=== PATIENT | male | born 1960 | race Caucasian/White ===

== ENCOUNTER 2017-11-07 13:42 | Inpatient (IN) ==
[~2017-11-07 13:42] MED LIST: *HR* Atropine Sulfate 1 MG/10 ML SYRINGE IV ONE; *HR* EPINEPHrine 1 MG/10 ML SYRINGE INTRATRACH ONE
[2017-11-07] MEDS ORDERED: *HR* Ticagrelor 90 MG TABLET PO ONE (13:44)
[2017-11-07] MEDS ORDERED: Ondansetron 4 MG/2 ML VIAL IVP ONE (13:44)
[2017-11-07] MEDS ORDERED: *HR* Heparin 5,000 UNIT/ML VIAL IVP ONE (13:46)
[2017-11-07] MEDS ORDERED: *HR* FentaNYL (PF) 250 MCG/5 ML VIAL ONE (13:50)
[2017-11-07] MEDS ORDERED: *HR* Midazolam HCl 5 MG/5 ML VIAL IVP ONE (13:50)
--- NOTE | 2017-11-07 13:54 | Emergency Department Note ---
Disposition Clinical Impression: STEMI (ST elevation myocardial infarction) Qualifiers: Involved coronary artery: unspecified coronary artery Qualified Code(s): I21.3 - ST elevation (STEMI) myocardial infarction of unspecified site Chest pain Qualifiers: Chest pain type: unspecified Qualified Code(s): R07.9 - Chest pain, unspecified Nausea & vomiting Qualifiers: Vomiting type: unspecified Vomiting Intractability: non-intractable Qualified Code(s): R11.2 - Nausea with vomiting, unspecified Disposition: Admitted As Inpatient General Adult HPI - General Chief complaint: ED Chest Pain Stated complaint: Stemi Time Seen by Provider: 11/07/17 13:44 Source: patient, EMS Limitations: no limitations Nursing Notes Reviewed: Yes Vital Signs Reviewed: Yes - History of Present Illness HPI Narrative: 56 y/o male who 2 hours ago was shoveling snow and developed substernal CP. No history of any medical problems. Takes no medications. EMS was called and they transmitted an EKG w/ an inferior STEMI. No fall or injury. No headache. CP resolved as they were pulling up to the ER. He received aspirin and nitro. He has nausea currently, but is otherwise CP free. Location: chest Radiation: non-radiation Pain Scale: 0 Improves with: nothing Worsens with: nothing Associated symptoms: Reports: denies other symptoms Treatments Prior to Arrival: none - Related Data Allergies Allergy/AdvReac Type Severity Reaction Status Date / Time No Known Allergies Allergy Verified 11/07/17 13:43 All systems ED: reviewed and negative except as stated. Constitutional: Denies: fever Cardiovascular: Reports: chest pain Respiratory: Denies: dyspnea Gastrointestinal: Denies: abdominal pain Musculoskeletal: Denies: back pain Integumentary: Denies: rash Neurological: Denies: headache Endocrine: Reports: fatigue Physical Exam - General Limitations: no limitations General appearance: alert, in no apparent distress - Head Head exam: atraumatic - Eye Eye exam: Present: normal appearance, PERRL - ENT ENT exam: normal exam, normal oropharynx - Neck Neck exam: Present: normal inspection - Chest Chest inspection: Present: normal inspection - Respiratory Respiratory exam: Present: normal lung sounds bilaterally. Absent: respiratory distress - Cardiovascular Cardiovascular exam: Present: regular rate, normal rhythm - Abdominal Exam Abdominal exam: Present: soft, Non-Tender - Extremities Exam Extremities exam: Present: normal inspection - Neurological Exam Neurological exam: Present: alert, oriented X3 - Skin Skin exam: Present: warm, dry Course Course Narrative: STEMI alert called when EKG transmitted. EMS transport approximately [address] Bender saw the patient in the ED. The patient left to the manager cath lab 12 minutes after he arrived to the ER. Medical Decision Making - Medical Records Medical records reviewed: Yes I reviewed the patient's medical records. - Lab Data Result diagrams: 11/07/17 13:45 - EKG Data EKG #1 EKG attestation: Yes I reviewed and interpreted this EKG. EKG shows normal: sinus rhythm Rate: normal Rhythm: NSR [place]/QRS: normal ST segment elevation in: II, III, aVF ST segment depression in: v2, v3, v4 When compared to previous EKG there are: changes noted Interpretation: other (Acute STEMI (inferior)) Attestation Statement - Attestation Attestation: I examined this patient and my medical decision-making was reviewed with the Resident Physician. I agree with the documented findings, disposition and treatment plan as described except to the extent set forth below. Patient presents to the ED with a chief complaint chest pain. Patient is describing substernal pressure that started an hour prior to his arrival while he was shoveling snow. On examination he is in no distress. Pale. Diaphoretic. Lungs clear. Plan. Patient has inferior ST elevations with anterior depressions. Stimulant was called in the field when EKG was transmitted. He was given aspirin by medics. Nitroglycerin 1. Patient was febrile into and heparin and Zofran in ED. Patient to catheter lab. Critical care less than 30 minutes.
[2017-11-07 14:00] LABS: Basophils # 0.1 K/mcL (0.0-0.2); Basophils % 0.5 %; Eosinophils # 0.1 K/mcL (0.0-0.6); Eosinophils % 0.9 %; Hematocrit 43.1 % (37.5-50.1); Hemoglobin 14.7 g/dL (12.9-16.9); Immature Granulocytes % 0.4 % (0-4); Lymphocytes # 4.3 K/mcL (0.6-4.6); Lymphocytes % 30.1 %; Mean Corpuscular HGB Conc 34.1 g/dL (31.6-35.5); Mean Corpuscular Hemoglobin 32.4 pg (28.0-33.3); Mean Corpuscular Volume 94.9 fL (83.0-100.0); Mean Platelet Volume 8.8 fL (9.4-12.4); Monocytes # 0.9 K/mcL (0.0-1.3); Monocytes % 6.3 %; Neutrophils # 8.8 K/mcL (1.6-8.9); Platelet Count 315 K/mcL (140-400); Red Blood Count 4.54 M/mcL (4.19-5.50); Segmented Neutrophils % 61.8 %
[2017-11-07 14:05] LABS: Prothrombin Time 10.7 Seconds (9.4-12.1)
[2017-11-07 14:08] LABS: Activated Partial Thrombo Time 28.6 Seconds (26.0-36.0)
[2017-11-07] MEDS ORDERED: Tirofiban 12.5 MG/250ML 12.5 MG/250 ML BAG ONE (14:08)
[2017-11-07 14:13] LABS: BUN/Creatinine Ratio 15 (6-26); Blood Urea Nitrogen 13 mg/dL (6-20); Calcium 8.9 mg/dL (8.6-10.3); Carbon Dioxide 21 mEq/L (23-29); Chloride 107 mEq/L (98-107); Glucose 130 mg/dL (70-105); Magnesium 1.9 mg/dL (1.6-2.6); Osmolality,Calculated 284 (280-300); Potassium 3.4 mEq/L (3.5-5.1); Sodium 136 mEq/L (136-145); eGFR For African Americans > 60 (> 60); eGFR For Non-African Americans > 60 (> 60)
[2017-11-07] MEDS ORDERED: 0.9 % Sodium Chloride 1,000 ML ONE ×2 (14:24→15:08)
[2017-11-07] MEDS ORDERED: DOPamine Premix 0 MG/0 ML BAG ONE (14:25)
[2017-11-07] MEDS ORDERED: Heparin 1,000 UNITS/500 mL 500 ML ONE (15:09)
[2017-11-07] MEDS ORDERED: *HR* Heparin 10,000 UNIT/10 ML VIAL ONE (15:09)
--- NOTE | 2017-11-07 15:23 | Cardiology History & Physical ---
Date of Encounter: 11/07/17 Time of Encounter: 15:21 Assessment and Plan (1) STEMI (ST elevation myocardial infarction) Current Visit: Yes Status: Acute The assessment and plan as outlined above was discussed with the patient and/or family members who expressed understanding and agreement. All questions were answered. Inferior STEMI , started on Brilinta asa and heparin in the ED. Currently chest pain free, will stage OM1 thursday. Continue asa 81 mg along with brilinta 90mg bid Qualifiers: Involved coronary artery: right coronary artery Qualified Code(s): I21.11 - ST elevation (STEMI) myocardial infarction involving right coronary artery History of Present Illness Chief complaint: Chest Pain HPI: Mr. Foster is a 56 year old male presents with chest pain while shoveling snow at his driveway. Chest pain was RS sharp non radiating found to have inferior ST elevations. Posterior ischemia was also noted. Currently s/p PCI of the Mid RCA with distal moderate RCA disease. Large distribution OM to be staged for PCI on thursday. LVEF 60% with mild basal inferior wall HK Past Med Surg Social Fam HX - Past Medical History Medical history: no medical history Psychiatric history: no psych history - Social History Smoking Status: Current every day smoker Smokeless Tobacco Status: No Alcohol use: none Drug use: none Medications and Allergies 3 Allergy/AdvReac Type Severity Reaction Status Date / Time No Known Allergies Allergy Verified 11/07/17 13:43 All Systems Review: A 10-system review of systems was performed and is negative for pertinent findings except as documented above in the HPI. Physical Examination General: Conversant, No Apparent Distress HEENT: Atraumatic, Normocephaly, Mucus Membranes Moist Neck: No JVD, Normal carotid pulses Cardiac: Reg Rate and Rhythm, Normal S1 and S2, No Murmur Lungs: Normal Breath Sounds, No Wheeze, Rales, Rhonchi Neuro: Alert and responsive, No focal deficits noted Abdomen: Soft, Non-Tender Skin: No rashes noted on visualized skin Musculoskeletal: No Chest Wall Tenderness Extremities: No Clubbing, No Cyanosis, No Edema, Normal Pulses Results 11/07/17 13:45 11/07/17 13:45
[2017-11-07] MEDS ORDERED: Ondansetron 4 MG/2 ML VIAL IVP PRN (15:28)
--- NOTE | 2017-11-07 15:30 | Invasive Diagnostic Lab Proc ---
Name: Georgina Foster Date of Study: 11/07/2017 Date: 1960 Ht: 69.0in Medical Record#: [id number] Age: 56 Wt: 183.00lb Gender: Male BSA: 1.99 Order #: [id number] BMI: 27.02 Physicians Procedure Physician: Nelda Bender MD Referring MD: Referring MD: Staff Name Position Time In Chang Carlos RN Mold Changer 02:05 PM Trinity Teran RN Monitor 02:05 PM Adele Bryan RN Scrub 02:05 PM Indications Indication STEMI Procedures Performed Procedure L HRT ARTERY/VENTRICLE ANGIO PRQ CARD REVASC WA 1 VSL Pre-Procedure Checklist Informed consent is complete signed and on chart. H&P is on chart. ID band is on and ID verified with patient. Pt not NPO for procedure and MD aware. The procedure was described for the patient and questions were answered. Blood Pressure: 134/80 ECG is on chart. Rhythm: St elevation, normal rate Plan of Care Patient will tolerate the procedure without complications. Adequate level of comfort will be maintained. Hemodynamics will remain stable Patient will recover from procedure without complications. Respiratory function will be maintained. Cardiac rhythm will remain stable. Patient temperature will be maintained. Patient and/or family have verbalized understanding of the procedure. Patient Education Chief Complaint/Reason for Test: Cardiac Cath Developmental Category: Adult (18-64 years) Developmentally Appropriate for Age: Yes Learning Barriers: None Education Needs: Procedure Education Method: Verbal Information Taught: Cardiac Cath Educational Evaluation: Able to repeat information Intravenous Access Time IV Size Location DC'd Fluid/Drip Rate Units RN 02:02 PM 18g 1 14" Patent On Arrival Lt Antecubital 0.9NaCl 25 ml/hr Chang Carlos RN 02:02 PM 18g 1 1/4" Patent On Arrival Rt Antecubital Allergies No Known Allergies Vital Signs Time BP (mmHg) HR (bpm) O2 Sat. RR (bpm) LOC 02:03 PM / % 5 = Fully awake and oriented or at pre-proc level 02:03 PM / % 4 = Oriented but drowsy 02:19 PM / % 4 = Oriented but drowsy 02:34 PM / % 4 = Oriented but drowsy 02:49 PM / % 4 = Oriented but drowsy 02:00 PM 134 / 84 66 97 % 02:05 PM 125 / 87 80 96 % 11 02:10 PM 136 / 82 67 92 % 14 02:12 PM 93 / 74 67 91 % 15 02:18 PM 159 / 91 105 91 % 15 02:22 PM 95 / 62 94 90 % 18 02:23 PM 74 / 32 67 91 % 16 02:24 PM 63 / 44 92 100 % 16 02:25 PM 99 / 64 99 93 % 16 02:33 PM 95 / 60 93 92 % 18 02:41 PM 102 / 70 89 91 % 18 Procedural Medications Time Medication Dose Units Method Given By 02:02 PM Oxygen 2 L/min nasal cannula Chang Carlos RN 02:04 PM Versed 1 mg Intravenous Chang Carlos RN 02:04 PM Fentanyl 50 mcg Intravenous Chang Carlos RN 02:05 PM Lidocaine 2% 10 ml Subcutaneous Nelda Bender MD 02:10 PM Heparin 1000 units Intravenous Chang Carlos RN 02:10 PM Aggrastat Bolus: 42 ml Intravenous Chang Carlos RN 02:11 PM Aggrastat 12.5mg/250ml 15 ml Intravenous Chang Carlos RN 02:13 PM Atropine 0.5 amp Intravenous Chang Carlos RN 02:14 PM Epinephrine 100 mcg Intravenous Chang Carlos RN 02:23 PM Atropine 0.5 amp Intravenous Chang Carlos RN 02:35 PM Heparin 500 units Intravenous Chang Carlos RN 02:41 PM Nitroglycerin 100 mcg Intracoronary Lamin Bender MD 02:30 PM Nitroglycerin 100 mcg Intracoronary Lamin Bender MD ASA Classification: CLASS II- Mild systemic disease (i.e. well-controlled diabetes, hypertension, asthma, cigarette smoking) Emergent Procedure: ASA score is assumed Jocelyne Score Preprocedure Postprocedure Activity 2- Moves 4 extremities sustained head lift Activity 2- Moves 4 extremities sustained head lift Circulation 2- SBP +/= 20 points of pre-anesthetic level Circulation 2- SBP +/= 20 points of pre-anesthetic level Consciousness 2- Awake and alert oriented x 3 Consciousness 2- Awake and alert oriented x 3 O2 Saturation 2- Able to maintain O2 satruation of 92% on room air O2 Saturation 2- Able to maintain O2 satruation of 92% on room air Respiratory 2- Able to deep breathe and cough well Respiratory 2- Able to deep breathe and cough well Total Score 10 Total Score 10 Contrast Agent: Isovue Diagnostic Contrast: 226 ml Total Contrast: 226 ml Fluoro Dose: 1822 mGy Activated Clotting Time Time Seconds to Clot 02:09 PM 192 02:35 PM 208 03:10 PM 190 Procedure Log Time Note Enter By 01:56 PM Pt arrived to labor crew supervisor 2 at 13:56 scoates 01:59 PM CathStat 01:59 PM Case Start 02:00 PM Vitals capture started with the following parameters, Patient=Adult, Interval=5 min, Initial Baxxyeys=500 mmHg, Deflation Rate=5 mmHg, Cuff placed on Left Arm 02:00 PM HR=66 bpm, ULCM=023/84 mmhg, SpO2=97 % 02:02 PM Patient charges- Angio tray pack, Navilyst 3mm J, Pulse Oximetry and ACIST tubing and transducer scoates 02:02 PM Physician arrived 14:02 scoates 02:02 PM Meet and greet completed scoates 02:02 PM Sign in performed according to hospital policy. scoates 02:02 PM Procedure start 14:02 scoates 02:02 PM Time: 14:02 Oxygen on at 2 L/min per nasal cannula by Chang Carlos RN scoates 02:03 PM Hair removed from procedure site in emergency department using clippers. Bilateral groin prepped with Chloraprep by Chang Carlos RN, safety strap applied then patient was draped. Skin intact. scoates 02:03 PM Time: 14:03LOC: 5 = Fully awake and oriented or at pre-proc level scoates 02:03 PM Time: 14:03 Patient comfortable and pain free: No scoates 02:03 PM Complaint: Pain; Pain Score: 3 (1-10); Pain Location: Chest; Relief Measure: Medication; Response: . scoates 02:04 PM Clinical Presentation: STEMI or equivalent scoates 02:04 PM Time out performed according to hospital policy scoates 02:04 PM Time: 14:04 Versed 1 mg Intravenous Given by Chang Carlos RN scoates 02:04 PM Time: 14:04 Fentanyl 50 mcg Intravenous Given by Chang Carlos RN scoates 02:05 PM Time: 14:05 10 ml Lidocaine 2% to right groin Subcutaneous Given by Nelda Bender MD scoates 02:05 PM Chang Carlos RN Position: Mold Changer Time in: 14:05 scoates 02:05 PM [place], Trinity RN Position: Monitor Time in: 14:05 scoates 02:05 PM Adele Bryan RN Position: Scrub Time in: 14:05 scoates 02:05 PM Case Delayed No scoates 02:05 PM HR=80 bpm, TZZV=125/87 mmhg, SpO2=96.0 %, Resp=11 B/min 02:05 PM Pressure channel 1 zeroed. 02:06 PM Access obtained by percutaneous puncture. 6Fr 10cm Terumo [place] sheath placed in right Femoral artery. [id number] scoates 02:06 PM PCI Status Emergency scoates 02:07 PM 6Fr JR4 Runway guide catheter was used to cannulate the PCI vessel successfully. reused? No scoates 02:07 PM Recorded Pressure: Ao, HR=74, Condition=Condition 1 (Aorta) Ao 141/91/114 02:07 PM ACT drawn scoates 02:07 PM RCA angiography performed in multiple views. scoates 02:08 PM Coronary Dominance: right scoates 02:08 PM Lesion found in Mid RCA. Pre Stenosis: 100 Pre PABLO Flow: 0: No Flow/No perfusion scoates 02:09 PM .014 [place]ielder 180cm guide wire across target lesion- successful. reused? No scoates 02:09 PM At 14:09 the ACT was 192 seconds. scoates 02:10 PM Time: 14:10 Heparin 1000 units Intravenous Given by Chang Carlos RN scoates 02:10 PM HR=67 bpm, TLBZ=780/82 mmhg, SpO2=92.0 %, Resp=14 B/min 02:10 PM Time: 14:10 Aggrastat Bolus: 42 ml Intravenous Given by Chang Carlos RN Landry pump scoates 02:11 PM Time: 14:11 Aggrastat 12.5mg/250ml 15 ml Intravenous Given by Chang Carlos RN Landry pump scoates 02:11 PM 2.0 mm x 12 mm Emerge Monorail balloon across target lesion- successful. reused? No scoates 02:12 PM NIBP STAT measurement started. 02:12 PM Balloon inflated @ 6 ludin for 11 seconds scoates 02:12 PM HR=67 bpm, NIBP=93/74 mmhg, SpO2=91 %, Resp=15 B/min 02:13 PM pt became bradycardic, hr in the 20s scoates 02:13 PM Time: 14:13 Atropine 0.5 amp Intravenous Given by Chang Carlos RN scoates 02:14 PM Time: 14:14 Epinephrine 100 mcg Intravenous Given by Chang Carlos RN scoates 02:14 PM Pressure channel 1 zeroed. 02:16 PM Vitals capture stopped. 02:16 PM NIBP STAT measurement started. 02:17 PM Vitals capture stopped. 02:17 PM Recorded Pressure: Ao, GA=466, Condition=Condition 1 (Aorta) Ao 164/105/133 02:18 PM NIBP STAT measurement started. 02:18 PM FD=924 bpm, MQXX=274/91 mmhg, SpO2=91 %, Resp=15 B/min 02:18 PM Time: 14:03 Patient comfortable and pain free: No scoates 02:19 PM Time: 14:03LOC: 4 = Oriented but drowsy scoates 02:19 PM Complaint: Pain; Pain Score: 3 (1-10); Pain Location: Chest; Relief Measure: MD Aware no orders given; Response: . scoates 02:19 PM pt having chest pain and headache from medications given. physician aware scoates 02:20 PM Recorded Pressure: Ao, HR=98, Condition=Condition 1 (Aorta) Ao 107/76/91 02:22 PM NIBP STAT measurement started. 02:22 PM Balloon catheter removed intact. scoates 02:22 PM HR=94 bpm, NIBP=95/62 mmhg, SpO2=90 %, Resp=18 B/min 02:22 PM NIBP STAT measurement started. 02:22 PM 3.0mm x 20mm Synergy drug-eluting stent across target lesion- successful Lot #[id number] scoates 02:23 PM rhythm changed again to bradycardia, rate in the low 30s scoates 02:23 PM Stent deployed @ 11 ludin for 9 seconds scoates 02:23 PM Time: 14:23 Atropine 0.5 amp Intravenous Given by Chang Carlos RN scoates 02:23 PM HR=67 bpm, NIBP=74/32 mmhg, SpO2=91 %, Resp=16 B/min 02:23 PM NIBP STAT measurement started. 02:24 PM HR=92 bpm, NIBP=63/44 mmhg, PkX7=972 %, Resp=16 B/min 02:24 PM Recorded Pressure: Ao, RY=337, Condition=Condition 1 (Aorta) Ao 73/56/64 02:24 PM NIBP STAT measurement started. 02:25 PM HR=99 bpm, NIBP=99/64 mmhg, SpO2=93.0 %, Resp=16 B/min 02:26 PM Stent delivery system removed intact. scoates 02:26 PM 3.0mm x 20mm Synergy drug-eluting stent across target lesion- successful Lot #[id number] scoates 02:27 PM Lesion found in Proximal RCA. Pre Stenosis: 40 Pre PABLO Flow: scoates 02:29 PM stent removed intact, not deployed scoates 02:30 PM Time: 14:30 Nitroglycerin 100 mcg Intracoronary Given by Lamin Bender MD scoates 02:31 PM Time: 14:19 Patient comfortable and pain free: Yes scoates 02:33 PM NIBP STAT measurement started. 02:33 PM HR=93 bpm, NIBP=95/60 mmhg, SpO2=92.0 %, Resp=18 B/min 02:34 PM Time: 14:19LOC: 4 = Oriented but drowsy scoates 02:35 PM At 14:35 the ACT was 208 seconds. scoates 02:35 PM Time: 14:35 Heparin 500 units Intravenous Given by Chang Carlos RN scoates 02:35 PM 3.5 mm x 12mm NC Emerge balloon across target lesion- successful. reused? No scoates 02:38 PM Balloon inflated @ 12 ludin for 15 seconds scoates 02:38 PM Balloon inflated @ 12 ludin for 11 seconds scoates 02:39 PM Balloon inflated @ 14 ludin for 16 seconds scoates 02:39 PM Balloon inflated @ 12 ludin for 15 seconds scoates 02:40 PM NIBP STAT measurement started. 02:41 PM HR=89 bpm, UWPS=698/70 mmhg, SpO2=91.0 %, Resp=18 B/min 02:42 PM Time: 14:41 Nitroglycerin 100 mcg Intracoronary Given by Lamin Bender MD scoates 02:45 PM Balloon catheter removed intact. scoates 02:45 PM 5Fr FL 4 catheter inserted over the wire [facility] scoates 02:45 PM LCA angiography performed in multiple views. scoates 02:45 PM Recorded Pressure: Ao, HR=84, Condition=Condition 1 (Aorta) Ao 83/63/73 02:46 PM Time: 14:31 Patient comfortable and pain free: Yes scoates 02:49 PM Catheter removed scoates 02:49 PM Time: 14:34LOC: 4 = Oriented but drowsy scoates 02:50 PM 6Fr XB3.5 [place] Bright-Tip guide catheter was used to cannulate the PCI vessel successfully. reused? No scoates 02:52 PM Lesion found in 1st Marginal. Pre Stenosis: 80 Pre PABLO Flow: scoates 02:52 PM Guide catheter removed intact. scoates 02:52 PM 5Fr Pigtail catheter inserted over the wire DN scoates 02:52 PM Catheter selectively placed in left ventricle scoates 02:53 PM Recorded Pressure: LV, HR=90, Condition=Condition 1 (Left Ventricle) LV 101/17/18 02:53 PM Recorded Pressure: LV, HR=91, Condition=Condition 1 (Left Ventricle) LV 96/14/14 02:53 PM Bolus angiogram of left Ventricle complete: 10 ml/sec for a total of 20 mls scoates 02:53 PM Catheter removed scoates 02:54 PM Recorded Pressure: LV, Ao, HR=86, Condition=Condition 1 (Left Ventricle) LV 102/17/19, (Aorta) Ao 90/53/74 02:56 PM Bolus angiogram of right Femoral complete: 4 ml/sec for a total of 7 mls scoates 02:59 PM Lesion found in Proximal LAD. Pre Stenosis: 25 Pre PABLO Flow: scoates 02:59 PM Lesion found in Mid LAD. Pre Stenosis: 60 Pre PABLO Flow: scoates 03:01 PM Lesion found in Distal RCA. Pre Stenosis: 50 Pre PABLO Flow: scoates 03:03 PM Procedure completed at 15:03 scoates 03:03 PM Sign out completed: Radiation Dose 1822 mGy Fluoro Time: 20.4 Isovue 370 - 200ml contrast 226 ml given by Nelda Bender MD. Complications: NoneCardiac Rehab Consult needed: YesConfirmed administered medications: Yes scoates 03:04 PM Isovue 370 - 200ml,1 Bottle(s) used. scoates 03:04 PM Sheath left in place to be pulled on floor/holding area scoates 03:04 PM Estimated Blood Loss: less than 20cc scoates 03:04 PM Post ECG NSR scoates 03:05 PM Post Blood Pressure 102/70 scoates 03:05 PM Time: 14:46 Patient comfortable and pain free: Yes scoates 03:05 PM Time: 14:49LOC: 4 = Oriented but drowsy scoates 03:05 PM 15:05 Post Pulses Bilateral DP & PT 2+ scoates 03:05 PM Information taught Cardiac Cath and PCI scoates 03:05 PM Education needs Procedure, Plan of Care, and Responsibilities of Patient in Care scoates 03:05 PM Learning barriers :None scoates 03:05 PM Education Methods Verbal scoates 03:05 PM Education evaluation Able to repeat information scoates 03:05 PM Site status No bleeding/hematoma - Rt Groin as reported by Adele Bryan RN at 15:05 scoates 03:06 PM Opsite applied scoates 03:06 PM Plavix, Effient or Brilinta given given in ER scoates 03:06 PM Delay to floor No scoates 03:10 PM At 15:10 the ACT was 190 seconds. scoates 03:12 PM Report given to Adrian GUY Pt taken to ICU Room #5. 15:12 scoates 03:17 PM Patient out of room: 15:17 scoates Complications Complication None Hemodynamics Pressures Site Systolic/A Wave Diastolic/V Wave Mean AO 141 91 114 AO 164 105 133 AO 107 76 91 AO 73 56 64 AO 83 63 73 LV 101 17 18 LV 96 14 14 LV 102 17 19 AO 90 53 74 Post Procedure Information Blood Pressure: 102/70 mmHg Rhythm: NSR Post procedural instructions were given Closure Device Time Device Success/Fail 11/07/2017 3:18:00 PM Manual Compression- sheath to be pulled in ICU when ACT appropriate Site Checks Time Location Status Staff Sheath In? Note 03:05 PM Rt Groin No bleeding/hematoma Adele Bryan RN Pulses Time Site Pre-Procedure Post-Procedure Note 3:05:00 PM Bilateral DP & PT 2+ 11/07/2017 2:02:00 PM Bilateral DP & PT 2+ Updated by Trinity Evans RN on 11/07/2017 3:19:54 PM electronically signed on 11/07/2017 3:24:14 PM with status of Final
[2017-11-07] MEDS: *HR* Ticagrelor 90 MG TABLET PO SCH (19:23)
[2017-11-08 05:38] LABS: Basophils % 0.3 %; Eosinophils # 0.1 K/mcL (0.0-0.6); Eosinophils % 0.9 %; Hematocrit 40.8 % (37.5-50.1); Hemoglobin 13.8 g/dL (12.9-16.9); Immature Platelets 2.3 % (1.1-6.1); Lymphocytes # 2.7 K/mcL (0.6-4.6); Lymphocytes % 22.1 %; Mean Corpuscular HGB Conc 33.8 g/dL (31.6-35.5); Mean Corpuscular Hemoglobin 32.8 pg (28.0-33.3); Mean Corpuscular Volume 96.9 fL (83.0-100.0); Mean Platelet Volume 9.6 fL (9.4-12.4); Monocytes # 0.9 K/mcL (0.0-1.3); Monocytes % 7.8 %; Neutrophils # 8.2 K/mcL (1.6-8.9); Platelet Count 257 K/mcL (140-400); Red Blood Count 4.21 M/mcL (4.19-5.50); Red Cell Distribution Width 13.5 % (11.5-14.5); Segmented Neutrophils % 67.9 %
[2017-11-08 05:54] LABS: BUN/Creatinine Ratio 13 (6-26); Blood Urea Nitrogen 11 mg/dL (6-20); Calcium 8.5 mg/dL (8.6-10.3); Carbon Dioxide 23 mEq/L (23-29); Chloride 108 mEq/L (98-107); Glucose 98 mg/dL (70-105); Osmolality,Calculated 285 (280-300); Potassium 3.8 mEq/L (3.5-5.1); Sodium 138 mEq/L (136-145); eGFR For African Americans > 60 (> 60); eGFR For Non-African Americans > 60 (> 60)
[2017-11-08] MEDS: *HR* Ticagrelor 90 MG TABLET PO SCH ×2 (08:37→20:29)
[2017-11-08] MEDS ORDERED: Aspirin 81 MG TAB.CHEW PO SCH (09:00)
--- NOTE | 2017-11-08 10:42 | Cardiology Progress Note ---
Date of Encounter: 11/08/17 Time of Encounter: 09:30 Assessment and Plan (1) STEMI (ST elevation myocardial infarction) Current Visit: Yes Status: Acute Per cardiology: -Admitted as STEMI, taken emergently to labor contract analyst. S/p GORDON to RCA. -On asa, statin, beta azalea, brilinta. -Patient educated on importance of dual anti-platelet therapy uninterrupted for at least one year. Patient states understanding. -TTE pending. -Denies current chest pain. -Plan for [facility] tomorrow for intervention on OM. -NPO after midnight. -Will transfer out of ICU. -TTE pending. -Beta azalea started. Qualifiers: Involved coronary artery: right coronary artery Qualified Code(s): I21.11 - ST elevation (STEMI) myocardial infarction involving right coronary artery Discussion w patient/family: The assessment and plan as outlined above was discussed with the patient who expressed understanding and agreement. All questions were answered. Thank you for involving us in the care of your patient. Please call with any questions. Discussed and reviewed with . Subjective Principal diagnosis: STEMI Interval history: Denies chest pain, states he feels good today. Denies shortness of breath. Objective Vital Signs, Last 4 Hours Temp Pulse Resp BP Pulse Ox 11/08/17 10:00 73 16 117/95 97 11/08/17 09:00 64 16 115/77 97 11/08/17 08:00 98.4 F 73 16 132/88 96 11/08/17 07:00 66 16 136/90 98 General: Conversant, No Apparent Distress HEENT: Atraumatic, Normocephaly, Mucus Membranes Moist Neck: No JVD, Normal carotid pulses Cardiac: Reg Rate and Rhythm, Normal S1 and S2, No Murmur Lungs: Normal Breath Sounds, No Wheeze, Rales, Rhonchi Neuro: Alert and responsive, No focal deficits noted Abdomen: Soft, Non-Tender Skin: No rashes noted on visualized skin, Other (Right groin access without hematoma. ) Musculoskeletal: No Chest Wall Tenderness Extremities: No Clubbing, No Cyanosis, No Edema, Normal Pulses Results 11/08/17 04:56 11/08/17 04:56 Lab Results Active Medications Acetaminophen (Tylenol) 500 mg PO Q6HR PRN PRN Reason: Mild Pain Stop: 05/09/18 15:29 Aspirin (Aspirin) 81 mg PO DAILY [facility] Stop: 05/10/18 09:01 Last Admin: 11/08/17 08:37 Dose: 81 mg Atorvastatin Calcium (Lipitor) 80 mg PO HS [facility] Stop: 05/09/18 21:01 Last Admin: 11/07/17 19:23 Dose: 80 mg Metoprolol Succinate (Toprol Xl) 12.5 mg PO DAILY [facility] Stop: 05/10/18 10:46 Ondansetron HCl (Zofran) 4 mg IVP Q8HR PRN PRN Reason: Nausea And Vomiting Stop: 05/09/18 15:29 Ticagrelor (Brilinta) 90 mg PO BID [facility] Stop: 05/09/18 21:01 Last Admin: 11/08/17 08:37 Dose: 90 mg Laboratory Tests 11/08/17 11/08/17 04:56 04:56 WBC 12.0 H Hgb 13.8 Creatinine 0.86 - Imaging and Cardiology Echo: pending Cardiac cath: report reviewed - EKG Interpretation EKG results cardiology: other (Telemetry reviewed with average HR previous 12 hours noted to be 63, sinus rhythm. PVCs and PACS noted. Runs of non-sustained ventricular tachycardia noted, longest lasting 8 beats.) - VTE Reasons for not Prescribing Prophylaxis: Not indicated-Anticoagulated or INR therapeutic Consult Discharge Plan - Plan Referrals: NONE,PCP [Primary Care Provider] -
[2017-11-08] MEDS ORDERED: Metoprolol XL (24 HR) Succ 25 MG TAB.ER.24H PO SCH (10:45)
[2017-11-08] MEDS ORDERED: Ondansetron 4 MG/2 ML VIAL IVP PRN (11:03)
[2017-11-09 04:39] LABS: Hematocrit 42.1 % (37.5-50.1); Hemoglobin 14.1 g/dL (12.9-16.9); Mean Corpuscular HGB Conc 33.5 g/dL (31.6-35.5); Mean Corpuscular Hemoglobin 32.3 pg (28.0-33.3); Mean Corpuscular Volume 96.3 fL (83.0-100.0); Mean Platelet Volume 9.2 fL (9.4-12.4); Platelet Count 227 K/mcL (140-400); Red Blood Count 4.37 M/mcL (4.19-5.50); Red Cell Distribution Width 13.3 % (11.5-14.5)
[2017-11-09 04:58] LABS: BUN/Creatinine Ratio 14 (6-26); Blood Urea Nitrogen 11 mg/dL (6-20); Calcium 8.7 mg/dL (8.6-10.3); Carbon Dioxide 24 mEq/L (23-29); Chloride 110 mEq/L (98-107); Glucose 106 mg/dL (70-105); Osmolality,Calculated 290 (280-300); Potassium 3.7 mEq/L (3.5-5.1); Sodium 140 mEq/L (136-145); eGFR For African Americans > 60 (> 60); eGFR For Non-African Americans > 60 (> 60)
[2017-11-09] MEDS ORDERED: Adenosine 90 MG/30 ML MLS IV ONE (07:32)
[2017-11-09] MEDS: Aspirin 81 MG TAB.CHEW PO SCH (08:12)
[2017-11-09] MEDS: *HR* Ticagrelor 90 MG TABLET PO SCH ×2 (08:12→20:05)
[2017-11-09] MEDS ORDERED: Metoprolol XL (24 HR) Succ 25 MG TAB.ER.24H PO SCH (09:00)
--- NOTE | 2017-11-09 09:25 | Event Note ---
Date of Encounter: 11/09/17 Time of Encounter: 08:30 - Cardiology Event Note Patient presented as STEMI on Thursday, plan for staged PCI today. Risks versus benefits of LHC explained to patient. States understanding and agreeable to proceed. Further recommendations pending LHC.
[2017-11-09] MEDS ORDERED: Heparin 1,000 UNITS/500 mL 500 ML ONE (10:56)
[2017-11-09] MEDS ORDERED: Nitroglycerin 1,000 MCG/10 ML VIAL IV ONE (10:56)
[2017-11-09] MEDS ORDERED: 0.9 % Sodium Chloride 1,000 ML ONE ×2 (10:56→12:02)
[2017-11-09] MEDS ORDERED: *HR* Heparin 10,000 UNIT/10 ML VIAL ONE ×2 (10:56→12:16)
[2017-11-09] MEDS ORDERED: Tirofiban 12.5 MG/250ML 12.5 MG/250 ML BAG ONE (11:01)
[2017-11-09] MEDS ORDERED: *HR* Midazolam HCl 2 MG/2 ML VIAL ONE (12:08)
[2017-11-09] MEDS ORDERED: *HR* FentaNYL (PF) 100 MCG/2 ML VIAL ONE (12:09)
--- NOTE | 2017-11-09 13:04 | Invasive Diagnostic Lab Proc ---
Name: Georgina Foster Date of Study: 11/09/2017 Date: 1960 Ht: 69.0in Medical Record#: [id number] Age: 57 Wt: 185.41lb Gender: Male BSA: 2. Order #: [id number] BMI: 27.37 Physicians Procedure Physician: Nelda Bender MD Referring MD: Referring MD: Staff Name Position Time In Emilia Mojica RN Endoscopy Support Specialist 11:56 AM Henna Carlos RT (R) Scrub 11:56 AM Amira Johnston RT (R) Monitor 11:56 AM Indications Indication Coronary Artery Disease Planned PCI STEMI Procedures Performed Procedure CORONARY ARTERY ANGIO S&I IV Doppler BLD Flow 1st Vessel Pre-Procedure Checklist Informed consent is complete signed and on chart. H&P is on chart. ID band is on and ID verified with patient. Patient NPO for procedure The procedure was described for the patient and questions were answered. Blood Pressure: 151/109 ECG is on chart. Rhythm: NSR Plan of Care Patient will tolerate the procedure without complications. Adequate level of comfort will be maintained. Hemodynamics will remain stable Patient will recover from procedure without complications. Respiratory function will be maintained. Cardiac rhythm will remain stable. Patient temperature will be maintained. Patient and/or family have verbalized understanding of the procedure. Patient Education Chief Complaint/Reason for Test: Cardiac Cath Developmental Category: Adult (18-64 years) Developmentally Appropriate for Age: Yes Learning Barriers: None Education Needs: Procedure Education Method: Verbal Information Taught: Cardiac Cath Educational Evaluation: Able to repeat information Intravenous Access Time IV Size Location DC'd Fluid/Drip Rate Units RN 18g 1 1/" Patent On Arrival Rt Antecubital 18g 1 1/4" Patent On Arrival Lt Antecubital 0.9NaCl 25 ml/hr Emilia Mojica RN Allergies No Known Allergies Vital Signs Time BP (mmHg) HR (bpm) O2 Sat. RR (bpm) LOC 151 / 109 78 96 % 19 5 = Fully awake and oriented or at pre-proc level 12:11 PM / % 5 = Fully awake and oriented or at pre-proc level 12:11 PM / % 5 = Fully awake and oriented or at pre-proc level 12:26 PM / % 4 = Oriented but drowsy 12:05 PM 157 / 105 86 99 % 19 12:09 PM 150 / 102 84 99 % 17 12:11 PM 161 / 102 82 100 % 17 12:15 PM 147 / 104 81 98 % 18 12:20 PM 142 / 97 83 98 % 16 12:25 PM 148 / 101 86 99 % 15 12:30 PM 143 / 98 97 99 % 17 12:35 PM 150 / 111 87 98 % 11 12:41 PM 160 / 114 89 99 % 16 12:42 PM / % 5 = Fully awake and oriented or at pre-proc level Procedural Medications Time Medication Dose Units Method Given By 12:09 PM Oxygen 2 L/min nasal cannula Amira Johnston RT (R) 12:10 PM Versed 1 mg Intravenous Emilia Mojica RN 12:10 PM Fentanyl 50 mcg Intravenous Emilia Mojica RN 12:12 PM Lidocaine 2% 10 ml Subcutaneous Nelda Bender MD 12:15 PM Heparin 5000 units Intravenous Emilia Mojica RN 12:29 PM Adenosine 705 ml/hr Intracoronary Nelda Bender MD 12:33 PM Adenosine 705 ml/hr Intracoronary Nelda Bender MD ASA Classification: CLASS II- Mild systemic disease (i.e. well-controlled diabetes, hypertension, asthma, cigarette smoking) Jocelyne Score Preprocedure Postprocedure Activity 2- Moves 4 extremities sustained head lift Activity 2- Moves 4 extremities sustained head lift Circulation 2- SBP +/= 20 points of pre-anesthetic level Circulation 2- SBP +/= 20 points of pre-anesthetic level Consciousness 2- Awake and alert oriented x 3 Consciousness 2- Awake and alert oriented x 3 O2 Saturation 2- Able to maintain O2 satruation of 92% on room air O2 Saturation 2- Able to maintain O2 satruation of 92% on room air Respiratory 2- Able to deep breathe and cough well Respiratory 2- Able to deep breathe and cough well Total Score 10 Total Score 10 Contrast Agent: Isovue Diagnostic Contrast: 106 ml Total Contrast: 106 ml Fluoro Dose: 464 mGy Activated Clotting Time Time Seconds to Clot 12:40 PM 255 Procedure Log Time Note Enter By 11:56 AM 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 Bilateral groin prepped with Chloraprep by Henna Carlos RT (R), safety strap applied then patient was draped. Skin intact. dspell 11:56 AM Physican paged/called :56. dspell 11:56 AM Physican responded and notified patient is ready :56 ell 11:56 AM Physician arrived : 11:56 AM Meet and greet completed 11:56 AM Sign in performed according to hospital policy. [facility] 11:56 AM Procedure start : [facility] 12:04 PM CathStat 12:04 PM Case Start 12:04 PM Vitals capture started with the following parameters, Patient=Adult, Interval=5 min, Initial Mvjmulni=447 mmHg, Deflation Rate=5 mmHg, Cuff placed on Left Arm 12:05 PM HR=86 bpm, PDSE=578/105 mmhg, SpO2=99.0 %, Resp=19 B/min, Comment=NSR 12:09 PM NIBP STAT measurement started. 12:09 PM Time: 12:09 Oxygen on at 2 L/min per nasal cannula by Amira Johnston RT (R) [facility] 12:09 PM HR=84 bpm, XPFN=216/102 mmhg, SpO2=99.0 %, Resp=17 B/min, Comment=NSR 12:10 PM Time: 12:10 Versed 1 mg Intravenous Given by Emilia Mojica RN [facility] 12:11 PM Time: 12:10 Fentanyl 50 mcg Intravenous Given by Emilia Mojica RN [facility] 12:11 PM HR=82 bpm, ZASR=264/102 mmhg, YoK0=253.0 %, Resp=17 B/min, Comment=NSR 12:11 PM Time: 12:11 Patient comfortable and pain free: Yes [facility] 12:11 PM Time: 12:11LOC: 5 = Fully awake and oriented or at pre-proc level dspell 12:12 PM Time out performed according to hospital policy dspell 12:12 PM Pressure channel 1 zeroed. 12:12 PM Time: 12:12 10 ml Lidocaine 2% to right groin Subcutaneous Given by Nelda Bender MD dspell 12:12 PM Micro-Introducer Kit utilized for sheath placement dspell 12:14 PM Clinical Presentation: Unstable angina dspell 12:14 PM Access obtained by percutaneous puncture. 6Fr 10cm Terumo Hammond sheath placed in right Femoral artery. [id number] dspell 12:15 PM 0.035 145cm Navilyst 3mmJ wire [id number] dspell 12:15 PM 6Fr XB3.5 Cordis guide catheter was used to cannulate the PCI vessel successfully. reused? No dspell 12:15 PM Time: 12:15 Heparin 5000 units Intravenous Given by Emilia Mojica RN dspell 12:15 PM HR=81 bpm, RPNY=284/104 mmhg, SpO2=98.0 %, Resp=18 B/min, Comment=NSR 12:15 PM Recorded Pressure: Ao, HR=81, Condition=Condition 1 (Aorta) Ao 163/99/126 12:17 PM Recorded Pressure: Ao, HR=81, Condition=Condition 1 (Aorta) Ao 148/89/117 12:18 PM PCI Status Urgent dspell 12:18 PM PCI Indication: Staged PCI dspell 12:19 PM PCI lesion in 1st Marginal. dspell 12:19 PM .014 [employer] 190cm guide wire across target lesion- successful. reused? No dsp 12:20 PM HR=83 bpm, AANS=742/97 mmhg, SpO2=98.0 %, Resp=16 B/min, Comment=NSR 12:22 PM Inflation device was opened. dspell 12:22 PM Asist FFR Catheter advanced to target lesion. dspell 12:23 PM Recorded Pressure: Ao, HR=89, Condition=Condition 1 (Aorta) Ao 158/102/127 12:24 PM PCI lesion in 1st Marginal. Pre Stenosis: 70 Pre PABLO Flow: 3: Complete and Brisk Flow/Perfusion dspell 12:25 PM HR=86 bpm, YUQP=765/101 mmhg, SpO2=99.0 %, Resp=15 B/min, Comment=NSR 12: PM Time: 12:11LOC: 5 = Fully awake and oriented or at pre-proc level [facility] 12: PM Time: 12:11 Patient comfortable and pain free: Yes [facility] 12:29 PM Time: 12:29 Adenosine 705 ml/hr administered Intracoronary by Nelda Bender MD [facility] 12:30 PM HR=97 bpm, EPRG=082/98 mmhg, SpO2=99.0 %, Resp=17 B/min, Comment=NSR 12:30 PM FFR Measurement: 0.84 [facility] 12:33 PM Time: 12:33 Adenosine 705 ml/hr administered Intracoronary by Nelda Bender MD [facility] 12:34 PM FFR Measurement: 0.84 [facility] 12:34 PM Flow Wire/Catheter removed intact dspellman 12:35 PM Guide wire removed intact. dspellolympia 12:35 PM Recorded Pressure: Ao, HR=91, Condition=Condition 1 (Aorta) Ao 166/106/134 12:35 PM HR=87 bpm, RHGV=600/111 mmhg, SpO2=98.0 %, Resp=11 B/min, Comment=NSR 12:35 PM Guide catheter removed intact. [facility] 12:36 PM Procedure completed at 12:36 [facility] 12:39 PM Sign out completed: Radiation Dose 464.01 mGy Fluoro Time: 5.2 Isovue 370 - 200ml contrast 106 ml given by Nelda Bender MD. Complications: NoneCardiac Rehab Consult needed: NoConfirmed administered medications: Yes [facility] 12:39 PM Isovue 370 - 200ml,1 Bottle(s) used. [facility] 12:40 PM ACT drawn [facility] 12:40 PM At 12:40 the ACT was 255 seconds. [facility] 12:41 PM HR=89 bpm, STTM=555/114 mmhg, SpO2=99.0 %, Resp=16 B/min, Comment=NSR 12:41 PM Sheath left in place to be pulled on floor/holding areaV+Pad [facility] 12:41 PM Time: 12:26 Patient comfortable and pain free: Yes [facility] 12:42 PM Time: 12:26LOC: 4 = Oriented but drowsy dspellman 12:42 PM Estimated Blood Loss: minimal dspellman 12:42 PM Post ECG NSR dspellman 12:42 PM Post Blood Pressure 160/114 dspellman 12:44 PM 12:44 Post Pulses Bilateral DP & PT 2+ dspellman 12:44 PM Information taught Cardiac Cath dspellman 12:44 PM Education needs Procedure, Plan of Care, and Responsibilities of Patient in Care dspellman 12:44 PM Learning barriers :None dspellman 12:44 PM Education Methods Verbal dspellman 12:44 PM Education evaluation Able to repeat information dspellman 12:44 PM Site status No bleeding/hematoma - Rt Groin as reported by Sites, Henna RT (R) at 12:44 dspellman 12:45 PM Opsite applied dspellman 12:45 PM Vitals capture stopped. 12:48 PM Report given to Trinity GUY Pt taken to ICU Room #5. 12:45 dspellman 12:49 PM Delay to floor No dspellman 12:49 PM Patient out of room: 12:49 dspellman 12:49 PM Family placed in no family available. dspellman 12:49 PM Complications: None dspell 12:49 PM Fluoro Time: 5.2 dspellman 12:50 PM Isovue 370 - 200ml contrast 106 ml given by Nelda Bender MD. dspellman 12:50 PM Radiation Dose 464.01 mGy dspell 12:57 PM Time: 12:41 Patient comfortable and pain free: Yes dspellolympia 12:57 PM Time: 12:42LOC: 5 = Fully awake and oriented or at pre-proc level [facility] Complications Complication None None Hemodynamics Pressures Site Systolic/A Wave Diastolic/V Wave Mean AO 163 99 126 AO 148 89 117 AO 158 102 127 AO 166 106 134 Post Procedure Information Blood Pressure: 160/114 mmHg Rhythm: NSR Post procedural instructions were given Closure Device Time Device Success/Fail 11/09/2017 12:50:00 PM Site Checks Time Location Status Staff Sheath In? Note 12:44 PM Rt Groin No bleeding/hematoma Sites, Henna RT (R) Pulses Time Site Pre-Procedure Post-Procedure Note Bilateral DP & PT 2+ Bilateral radial 2+ 12:44:00 PM Bilateral DP & PT 2+ Updated by Amira Johnston, RT (R) on 11/09/2017 12:57:51 PM RT Geremias electronically signed on 11/09/2017 12:58:43 PM with status of Final
--- NOTE | 2017-11-09 13:25 | Discharge Summary ---
Date of Encounter: 11/10/17 Time of Encounter: 13:25 - Discharge Diagnosis (1) STEMI (ST elevation myocardial infarction) Priority: Primary Status: Acute Comments: Admitted as RCA STEMI. S/p PCI. Qualifiers: Involved coronary artery: right coronary artery Qualified Code(s): I21.11 - ST elevation (STEMI) myocardial infarction involving right coronary artery (2) Tobacco abuse Priority: Secondary Status: Chronic Comments: Known tobacco abuse. Smoking cessation education reviewed with patient. - Discharge Medications Prescriptions: Aspirin 81 mg PO DAILY #30 tab.chew Atorvastatin [Lipitor] 80 mg PO HS #30 tablet Lisinopril [Zestril] 10 mg PO DAILY #30 tablet Metoprolol XL (24 HR) Succ [Toprol Xl] 25 mg PO DAILY #30 tab.er.24h Ticagrelor [Brilinta] 90 mg PO BID #60 tablet Home Medications: Aspirin 81 mg PO DAILY #30 tab.chew 11/10/17 [Rx] Atorvastatin [Lipitor] 80 mg PO HS #30 tablet 11/10/17 [Rx] Lisinopril [Zestril] 10 mg PO DAILY #30 tablet 11/10/17 [Rx] Metoprolol XL (24 HR) Succ [Toprol Xl] 25 mg PO DAILY #30 tab.er.24h 11/10/17 [ Rx] Ticagrelor [Brilinta] 90 mg PO BID #60 tablet 11/10/17 [Rx] Allergies/Adverse Reactions: 3 Allergy/AdvReac Type Severity Reaction Status Date / Time No Known Allergies Allergy Verified 11/07/17 13:43 Procedures/tests Complete & Pending: Procedures Performed prior 72 hours Category Date Time Status CL Cardiac Catheterization [CL] Routine Assistant Center Manager 11/09/17 09:23 Ordered ECG 12 lead ECG [ECG] Routine Y 11/08/17 07:00 Completed ECG 12 lead ECG [ECG] Stat Y 11/07/17 15:28 Completed EV echocardiogram Routine Y 11/08/17 15:28 Completed Date of admission: 11/07/17 14:00 Primary care physician: PCP NONE Consults: 11/07/17 15:28 Consult to Cardiac Rehabilitation-Phase1 [CONS] Routine Comment: Reason for Consult: AMI Call Completed: Yes Consult to Nurse Navigator [CONS] Routine Comment: Discharging clinician: Magali Carias Anticipated date of discharge: 11/10/17 - Patient Status Disposition: Home, Self-Care Condition: Good Functional capacity at discharge: independent ambulation Overall status at discharge: patient is progressing back to baseline - Discharge Instructions Follow Up With: NONE,PCP [Primary Care Provider] - Additional Instructions: RISK FACTORS: STOP SMOKING: If you smoke, STOP. Smoking or tobacco use significantly increases your risk of heart disease because nicotine causes the arteries to narrow or constrict. It also causes fats to stick to the artery. Your chances of having a heart attack are greatly increased if you continue to smoke. For more information, call the education line for smoking cessation 8-860-ECOMVEV EAT A LOW FAT/CHOLESTEROL/SODIUM DIET: This diet may help reduce your chances of having a heart attack. LIFTING: Avoid lifting anything more than 10 pounds for 5-7 days Prior to straining, laughing, sneezing and/or coughing, apply manual pressure directly over insertion site. ACTIVITY: You may walk or climb stairs as tolerated You can resume sexual activity as tolerated In general, you are encouraged to engage in a minimum of 30 minutes or more of moderate intensity physical activity, such as brisk walking, daily or at least 3 -4 times weekly BATHING Do not submerge the site into water (bath tub, hot tub, swimming pool) for 1 week. This can be a source for infection into the blood stream. You may shower after 24 hours SITE CARE: After 24 hours, you may remove the dressing and leave the site open to air. Keep the site clean and dry. Clean gently and pat dry. You can expect bruising and tenderness that gradually resolve within a week or two. Return to work as instructed per your physician Resume driving as instructed per physician Keep all scheduled follow up appointments Resume medications as instructed IMPORTANT: If prescribed a Platelet Aggregation Inhibitor such as, Plavix, Brilinta or Effient: Duration of therapy is minimum one year These medications are often used in combination with Aspirin in prevention of future heart attacks Never discontinue unless consult with your Gravel Roofer STROKE (CVA) Risk factors for a stroke are: Age, cigarette smoking, diabetes, excessive alcohol consumption, family history, high blood pressure, overweight, physical inactivity, prior stroke, heart attack, diagnosis of carotid artery stenosis or other artery disease. Warning signs: Sudden numbness or weakness of the face, arm or leg; especially on one side of the body, sudden confusion, trouble speaking or understanding, sudden trouble seeing in one or both eyes, sudden trouble walking, dizziness, loss of balance or coordination, sudden severe headache with no cause. Call 911 or go to the Emergency Room. CONGESTIVE HEART FAILURE: If you have been diagnosed with Congestive Heart Failure (CHF) and your symptoms return, make an appointment with your physician Weigh yourself daily. Notify your physician if you have a weight gain of two or more pounds in one day or five or more pounds in one week. If you experience any difficulty breathing, please call 911 BLEEDING: Although the risk of bleeding is minimal, it can happen. If you have any bleeding from the site, apply firm pressure above the puncture site for 10-15 minutes. If the bleeding does not stop, continue manual pressure and call 911 Contact your physician if: You develop a fever greater than 101 degrees Fahrenheit Your site becomes reddened or has any drainage You have an increase in pain or burning at the site or if a large knot forms at the site. If you experience chest pain, shortness of breath, dizziness, or extreme tiredness, stop the activity and rest. Please notify your physicians office if you experience any of these symptoms and they are not relieved by rest please call 911! - Diet and Activity Activity: increase activity as tolerated Diet: low fat, low cholesterol, low salt diet - Hospital Course Hospital course: Mr. oFster is a 57 year old male who presented as a STEMI on Thursday and underwent emergent LHC with GORDON placed to RCA. Pateint underwent repeat LHC yesterday to further evaluate OM for possible intervention, however FFR was negative. Patient is on asa, statin, beta azalea, and brilinta. Patient educated on importance of dual anti-plateler therapy uninterrupted for at least one year. Patient states understanding. Brilinta assistance card given to patient. Pateint educated to call for any issues with medications or RX. Patient states understanding. Denies chest pain. Denies issues using right leg. RIght groin access site without hemtoma, mild ecchymosis noted. RIght groin site management education given to patient. Patient states understanding. TTE was completed with LVEF 60%. Patient is being prepped for discharge home today in stable condition. Follow will be set up with [facility]. - Time Spent with Patient Total time spent providing and/or coordinating discharge services: Less than 30 minutes Physical Examination Vital Signs, Last 4 Hours Temp 11/09/17 12:05 98.0 F Vital Signs Temperature 97.4 F L 11/07/17 13:44 Pulse Rate 69 11/07/17 13:44 Respiratory Rate 15 11/07/17 13:44 Blood Pressure 133/99 11/07/17 13:44 O2 Sat by Pulse Oximetry 95 11/07/17 13:44 Temperature 97.8 F 11/10/17 07:40 Pulse Rate 75 11/10/17 07:40 Respiratory Rate 18 11/10/17 07:40 Blood Pressure 134/94 11/10/17 07:40 O2 Sat by Pulse Oximetry 95 11/10/17 07:40 Oxygen Delivery Oxygen Delivery Room Air General: Conversant, No Apparent Distress HEENT: Atraumatic, Normocephaly, Mucus Membranes Moist Neck: No JVD, Normal carotid pulses Cardiac: Reg Rate and Rhythm, Normal S1 and S2, No Murmur Lungs: Normal Breath Sounds, No Wheeze, Rales, Rhonchi Neuro: Alert and responsive, No focal deficits noted Abdomen: Soft, Non-Tender Skin: No rashes noted on visualized skin, Other (Right groin access site without hematoma, mild ecchymosis noted. ) Musculoskeletal: No Chest Wall Tenderness Extremities: No Clubbing, No Cyanosis, No Edema, Normal Pulses - VTE Reasons for not Prescribing Prophylaxis: Not indicated-Anticoagulated or INR therapeutic
[2017-11-09] MEDS ORDERED: Metoprolol XL (24 HR) Succ 25 MG TAB.ER.24H PO ONE (13:45)
--- NOTE | 2017-11-09 14:02 | Electrocardiograph Report ---
[address] [place] [id number] Test Date: 2017-11-08 Pat Name: Georgina Foster Department: 109 Room: [facility] Gender: M Dietitian Research: DORINA : 1960 Requested By: Nelda Bender Order Number: [id number] Reading MD: Chelita Hearn Measurements Intervals [place] Rate: 60 P: 59 MA: 156 QRS: -14 QRSD: 93 T: 76 QT: 409 QTc: 410 Interpretive Statements SINUS RHYTHM INFERIOR MYOCARDIAL INFARCTION, POSSIBLY RECENT Electronically Signed On 11-09-2017 14:00:35 EST by Chelita Hearn
--- NOTE | 2017-11-09 14:16 | Electrocardiograph Report ---
[address] [place] [address] Test Date: 2017-11-07 Pat Name: Georgina Foster Department: 109 Room: [facility] Gender: M [employer] Artistic Director: : 1960 Requested By: Nelda Bender Order Number: [id number] Reading MD: Chelita Hearn Measurements Intervals [place] Rate: 68 P: 59 AL: 160 QRS: 13 QRSD: 91 T: 68 QT: 377 QTc: 394 Interpretive Statements SINUS RHYTHM PROBABLE INFERIOR MYOCARDIAL INFARCTION, OF INDETERMINATE AGE Electronically Signed On 11-09-2017 14:15:00 EST by Chelita Hearn
--- NOTE | 2017-11-09 15:20 | Electrocardiograph Report ---
[address] [place], [place] [address] Test Date: 2017-11-07 Pat Name: Georgina Foster Department: 104 Room: [facility] Gender: M [employer]: MSC : 1960 Requested By: Yana See Order Number: [id number] Reading MD: Chelita Hearn Measurements Intervals [place] Rate: 76 P: 47 SC: 212 QRS: 7 QRSD: 105 T: 92 QT: 384 QTc: 414 Interpretive Statements SINUS RHYTHM WITH FIRST DEGREE AV BLOCK MARKED ST ELEVATION, CONSIDER INFERIOR INJURY [MARKED ST ELEVATION W/O NORMALLY INFLECTED T WAVE IN II/aVF] ACUTE MO Electronically Signed On 11-09-2017 15:18:38 EST by Chelita Hearn
[2017-11-10 07:40] VITALS: BP 134/94
[2017-11-10] MEDS: Aspirin 81 MG TAB.CHEW PO SCH (07:51)
[2017-11-10] MEDS: *HR* Ticagrelor 90 MG TABLET PO SCH (07:51)
[2017-11-10 09:00] LABS: Hematocrit 43.3 % (37.5-50.1); Hemoglobin 14.6 g/dL (12.9-16.9); Mean Corpuscular HGB Conc 33.7 g/dL (31.6-35.5); Mean Corpuscular Hemoglobin 32.4 pg (28.0-33.3); Mean Platelet Volume 9.1 fL (9.4-12.4); Platelet Count 238 K/mcL (140-400); Red Blood Count 4.51 M/mcL (4.19-5.50); Red Cell Distribution Width 13.3 % (11.5-14.5)
[2017-11-10] MEDS ORDERED: Metoprolol XL (24 HR) Succ 25 MG TAB.ER.24H PO SCH (09:00)
[2017-11-10 09:13] LABS: BUN/Creatinine Ratio 13 (6-26); Blood Urea Nitrogen 10 mg/dL (6-20); Calcium 8.8 mg/dL (8.6-10.3); Carbon Dioxide 24 mEq/L (23-29); Chloride 107 mEq/L (98-107); Glucose 171 mg/dL (70-105); Osmolality,Calculated 289 (280-300); Potassium 4.1 mEq/L (3.5-5.1); Sodium 138 mEq/L (136-145); eGFR For African Americans > 60 (> 60); eGFR For Non-African Americans > 60 (> 60)
== END 2017-11-10 11:31 | disposition home or self-care (01) | DRG 247 ==
LOC: EMEROO 13:42 → ICNU 14:00
PROVIDERS: ADMIT Internal Medicine Cardiovascular Disease; ATTEND Internal Medicine Cardiovascular Disease

== ENCOUNTER 2022-03-12 12:13 | Observation (INO) ==
[2022-03-12 13:32] LABS: Basophils # 0.1 K/mcL (0.0-0.2); Basophils % 0.5 %; Eosinophils # 0.2 K/mcL (0.0-0.6); Eosinophils % 1.7 %; Hematocrit 45.3 % (37.5-50.1); Hemoglobin 15.4 g/dL (12.9-16.9); Immature Granulocytes % 0.3 % (0-4); Lymphocytes # 2.5 K/mcL (0.6-4.6); Lymphocytes % 23.8 %; Mean Corpuscular Hemoglobin 32.5 pg (28.0-33.3); Mean Corpuscular Volume 95.6 fL (83.0-100.0); Mean Platelet Volume 9.1 fL (9.4-12.4); Monocytes # 0.7 K/mcL (0.0-1.3); Monocytes % 6.7 %; Neutrophils # 7.1 K/mcL (1.6-8.9); Platelet Count 258 K/mcL (140-400); Red Blood Count 4.74 M/mcL (4.19-5.50); Red Cell Distribution Width 12.4 % (11.5-14.5); White Blood Count 10.6 K/mcL (4.3-11.1)
[2022-03-12 13:42] LABS: Activated Partial Thrombo Time 33.8 Seconds (26.0-36.0)
[2022-03-12 13:56] LABS: BUN/Creatinine Ratio 17 (6-26); Blood Urea Nitrogen 14 mg/dL (8-23); Calcium 9.6 mg/dL (8.6-10.3); Carbon Dioxide 25 mEq/L (23-29); Chloride 105 mEq/L (98-107); Glucose 112 mg/dL (70-105); Osmolality,Calculated 285 (280-300); Potassium 4.2 mEq/L (3.5-5.1); Sodium 137 mEq/L (136-145); Troponin I < 0.03 ng/mL (< 0.04); eGFR For African Americans > 60 (> 60); eGFR For Non-African Americans > 60 (> 60)
[2022-03-12] MEDS ORDERED: Naloxone 0.4 MG/ML INJ IVP PRN (15:06)
[2022-03-12] MEDS ORDERED: Aspirin 325 MG TABLET PO ONE (15:20)
[2022-03-12] MEDS: lisinopriL 20 MG TABLET PO SCH (21:10)
[2022-03-13 02:06] LABS: Basophils # 0.1 K/mcL (0.0-0.2); Basophils % 0.6 %; Eosinophils # 0.4 K/mcL (0.0-0.6); Eosinophils % 3.3 %; Hematocrit 43.5 % (37.5-50.1); Hemoglobin 14.8 g/dL (12.9-16.9); Immature Granulocytes % 0.5 % (0-4); Lymphocytes # 3.9 K/mcL (0.6-4.6); Lymphocytes % 37.3 %; Mean Corpuscular Hemoglobin 32.9 pg (28.0-33.3); Mean Corpuscular Volume 96.7 fL (83.0-100.0); Mean Platelet Volume 9.1 fL (9.4-12.4); Monocytes # 0.8 K/mcL (0.0-1.3); Monocytes % 7.7 %; Neutrophils # 5.3 K/mcL (1.6-8.9); Platelet Count 228 K/mcL (140-400); Red Cell Distribution Width 12.5 % (11.5-14.5); Segmented Neutrophils % 50.6 %; White Blood Count 10.5 K/mcL (4.3-11.1)
[2022-03-13 02:24] LABS: BUN/Creatinine Ratio 18 (6-26); Blood Urea Nitrogen 14 mg/dL (8-23); Carbon Dioxide 25 mEq/L (23-29); Chloride 105 mEq/L (98-107); Glucose 90 mg/dL (70-105); Osmolality,Calculated 284 (280-300); Potassium 4.1 mEq/L (3.5-5.1); Sodium 137 mEq/L (136-145); eGFR For African Americans > 60 (> 60); eGFR For Non-African Americans > 60 (> 60)
[2022-03-13] MEDS ORDERED: *HR* Enoxaparin 40 MG/0.4 ML SYRINGE SQ SCH (06:00)
[2022-03-13] MEDS ORDERED: Regadenoson 0.4 MG/5 ML SYRINGE IVP ONE (07:26)
[2022-03-13] MEDS ORDERED: lisinopriL 20 MG TABLET PO SCH (09:00)
[2022-03-13] MEDS ORDERED: amLODIPine 5 MG TABLET PO SCH (09:00)
[2022-03-13] MEDS ORDERED: Aspirin 81 MG TAB.CHEW PO SCH (09:00)
[2022-03-13] MEDS: lisinopriL 20 MG TABLET PO SCH (10:19)
[2022-03-13 10:43] VITALS: BP 116/80; TEMP 97.5
[2022-03-13 10:47] VITALS: PULSE 89; O2SAT 94
== END 2022-03-13 15:16 | disposition home or self-care (01) ==
LOC: EMEROOARM 12:13 → 3BNU 12:13 → SUATTDRO 15:24 → 3BNU 16:09
PROVIDERS: ADMIT Pharmacist; ATTEND Student in an Organized Health Care Education/Training Program

== ENCOUNTER 2022-03-22 12:30 | Observation (INO) ==
[2022-03-22 13:32] LABS: Basophils % 0.5 %; Eosinophils # 0.2 K/mcL (0.0-0.6); Eosinophils % 2.5 %; Hematocrit 43.5 % (37.5-50.1); Immature Granulocytes % 0.4 % (0-4); Lymphocytes # 1.9 K/mcL (0.6-4.6); Mean Corpuscular HGB Conc 34.5 g/dL (31.6-35.5); Mean Corpuscular Hemoglobin 32.8 pg (28.0-33.3); Mean Platelet Volume 8.8 fL (9.4-12.4); Monocytes # 0.6 K/mcL (0.0-1.3); Neutrophils # 5.6 K/mcL (1.6-8.9); Platelet Count 233 K/mcL (140-400); Red Blood Count 4.58 M/mcL (4.19-5.50); Red Cell Distribution Width 12.4 % (11.5-14.5); Segmented Neutrophils % 66.6 %; White Blood Count 8.4 K/mcL (4.3-11.1)
[2022-03-22 13:49] LABS: BUN/Creatinine Ratio 21 (6-26); Blood Urea Nitrogen 21 mg/dL (8-23); Calcium 8.9 mg/dL (8.6-10.3); Carbon Dioxide 27 mEq/L (23-29); Chloride 102 mEq/L (98-107); Glucose 153 mg/dL (70-105); Osmolality,Calculated 288 (280-300); Sodium 136 mEq/L (136-145); eGFR For African Americans > 60 (> 60); eGFR For Non-African Americans > 60 (> 60)
[2022-03-22 13:50] LABS: Troponin I < 0.03 ng/mL (< 0.04)
[2022-03-22] MEDS ORDERED: Perflutren Lipid Microsphere 1.3 ML in 0.9 % Sodium Chloride 8.7 ML IVP PRN (16:39)
[2022-03-22] MEDS ORDERED: Naloxone 0.4 MG/ML INJ IVP PRN (16:44)
[2022-03-22] MEDS ORDERED: Ondansetron 4 MG/2 ML VIAL IVP PRN (16:44)
[2022-03-22 17:38] LABS: Thyroid Stimulating Hormone 1.047 mcIU/mL (0.340-5.600)
[2022-03-22] MEDS ORDERED: Albuterol 2.5 MG/3 ML NEBULIZER IH PRN (18:17)
[2022-03-23] MEDS: Metoprolol XL (24 HR) Succ 25 MG TAB.ER.24H PO SCH (10:03)
[2022-03-23] MEDS: Aspirin 81 MG TAB.CHEW PO SCH (10:03)
[2022-03-23 17:58] LABS: Folate 14.7 ng/mL (3.0-16.0)
[2022-03-24] MEDS: Aspirin 81 MG TAB.CHEW PO SCH (08:15)
[2022-03-24] MEDS: Metoprolol XL (24 HR) Succ 25 MG TAB.ER.24H PO SCH (08:15)
[2022-03-25 05:22] LABS: Basophils # 0.1 K/mcL (0.0-0.2); Basophils % 0.7 %; Eosinophils # 0.4 K/mcL (0.0-0.6); Eosinophils % 3.5 %; Hematocrit 43.5 % (37.5-50.1); Hemoglobin 14.7 g/dL (12.9-16.9); Immature Granulocytes % 0.5 % (0-4); Lymphocytes # 3.3 K/mcL (0.6-4.6); Lymphocytes % 32.7 %; Mean Corpuscular HGB Conc 33.8 g/dL (31.6-35.5); Mean Corpuscular Hemoglobin 32.2 pg (28.0-33.3); Mean Corpuscular Volume 95.2 fL (83.0-100.0); Monocytes # 0.7 K/mcL (0.0-1.3); Monocytes % 7.2 %; Neutrophils # 5.6 K/mcL (1.6-8.9); Platelet Count 230 K/mcL (140-400); Red Blood Count 4.57 M/mcL (4.19-5.50); Red Cell Distribution Width 12.1 % (11.5-14.5); Segmented Neutrophils % 55.4 %; White Blood Count 10.1 K/mcL (4.3-11.1)
[2022-03-25 05:42] LABS: BUN/Creatinine Ratio 25 (6-26); Blood Urea Nitrogen 21 mg/dL (8-23); Calcium 8.9 mg/dL (8.6-10.3); Carbon Dioxide 24 mEq/L (23-29); Chloride 104 mEq/L (98-107); Glucose 85 mg/dL (70-105); Osmolality,Calculated 284 (280-300); Potassium 4.2 mEq/L (3.5-5.1); Sodium 136 mEq/L (136-145); eGFR For African Americans > 60 (> 60); eGFR For Non-African Americans > 60 (> 60)
[2022-03-25] MEDS: Aspirin 81 MG TAB.CHEW PO SCH (09:00)
[2022-03-25] MEDS: Metoprolol XL (24 HR) Succ 25 MG TAB.ER.24H PO SCH (09:00)
[2022-03-25 11:00] VITALS: TEMP 98
[2022-03-25] MEDS ORDERED: Cyanocobalamin (B-12) 1,000 MCG/ML VIAL IM ONE (12:23)
[2022-03-25] MEDS ORDERED: 0.9 % Sodium Chloride 2,000 ML ONE (12:36)
[2022-03-25] MEDS ORDERED: *HR* FentaNYL (PF) 100 MCG/2 ML VIAL ONE (12:36)
[2022-03-25] MEDS ORDERED: *HR* Midazolam HCl 2 MG/2 ML VIAL ONE ×2 (12:36→13:09)
[2022-03-25] MEDS ORDERED: Nitroglycerin 1,000 MCG/5 ML VIAL IV ONE (12:37)
[2022-03-25] MEDS ORDERED: *HR* Heparin 10,000 UNIT/10 ML VIAL ONE (12:37)
[2022-03-25] MEDS ORDERED: Heparin 1,000 UNITS/500 mL 500 ML ONE (12:37)
[2022-03-25] MEDS ORDERED: ISOVUE-370 200 ML INFUS..BTL ONE (12:37)
[2022-03-25 16:33] VITALS: BP 118/86; PULSE 67; O2SAT 98
== END 2022-03-25 17:01 | disposition home or self-care (01) ==
LOC: 3BNU 12:30 → EMEROOARM 12:30 → SUATTDRO 16:36 → 3BNU 17:31
PROVIDERS: ADMIT Student in an Organized Health Care Education/Training Program; ATTEND Internal Medicine